=== PATIENT | male | born 1990 | race Caucasian/White ===

== ENCOUNTER → 2018-10-26 | Outpatient (CLI) | payer OTHER ==
[~2018-10-26] MED LIST: AZIT500T47 PO; TOBOO OS
--- NOTE | 2018-10-26 14:27 | RADIOLOGY IMAGING REPORT ---
FACILITY: [facility] PATIENT NAME: Yang Bean : 1990 MR: [id number] V: [id number] EXAM DATE: ORDERING PHYSICIAN: BRANDI LENNON TECHNOLOGIST: Location: [facility] Patient: Yang Bean : 1990 Visit/Account:[id number] Date of Sevice: 10/26/2018 Exam type: CERVICAL SPINE 2 OR 3 VIEW History: Left-sided neck pain radiating to head, left eye pressure, symptoms x1 year Comparison: January 14, 2011. Findings: Three views of the cervical spine were submitted C1 C7 are seen in gross anatomic alignment. There is no evidence of acute fractures or subluxations. No evidence of prevertebral soft tissue swelling. The disc spaces appear well-preserved. IMPRESSION: 1. Unremarkable cervical spine series Report Dictated By: Lucy Mahan MD at 10/26/2018 2:14 PM Report E-Signed By: Lucy Mahan MD at 10/26/2018 2:16 PM WSN:[email or web address]
== END ==
LOC: RAD 12:05
PROVIDERS: ATTEND Nurse Practitioner Family
DX: M54.2 Cervicalgia (principal)
CPT/HCPCS: 72040